=== PATIENT | male | born 1950 | race Hispanic/Latino ===

== ENCOUNTER 2023-10-05 09:54 | Day surgery (SDC) | payer OTHER ==
[2023-10-05 09:06] LABS: Absolute Lymphocytes (CBC) 1.4 K/uL (0.7-4.9); Hematocrit 46.9 % (39.6-49.0); Lymphocytes % 19.5 % (15.3-44.8); MCV 96.1 fL (80-100); MPV 7.8 fL (7.6-11.3); Platelets 226 thou/uL (152-406); RBC Red Blood Cell Count 4.88 M/uL (4.33-5.43)
[2023-10-05] MEDS ORDERED: Ringers Lactate 1,000 ML IV ONE (10:09)
--- NOTE | 2023-10-05 10:12 | RAD REPORT ---
EXAM DESCRIPTION: Ashish Garay And Jose (2 Views)10/05/2023 9:33 am CLINICAL HISTORY: pre op for surgery, hypertension. COMPARISON: CHEST SINGLE VIEW dated 10/16/2014 TECHNIQUE: Portable AP view of the chest. FINDINGS: The lungs are clear. Mild elevation of the left hemidiaphragm. No pneumothorax or effusio n. The cardiomediastinal contours are unremarkable. IMPRESSION: No acute cardiopulmonary process.
[2023-10-05] MEDS ORDERED: propofoL 200 MG/20 ML VIAL IV ONE (11:28)
[2023-10-05] MEDS ORDERED: dexAMETHasone 10 MG/ML VIAL ONE (11:28)
[2023-10-05] MEDS ORDERED: ROCURONIUM 50 MG/5 ML VIAL IV ONE (11:28)
[2023-10-05] MEDS ORDERED: LIDOCAINE 2% MPF 5 ML VIAL ONE (11:28)
[2023-10-05] MEDS ORDERED: ONDANSETRON 4 MG/2 ML VIAL ONE (11:28)
[2023-10-05] MEDS ORDERED: FENTANYL CITR 100 MCG/2 ML ONE (11:29)
[2023-10-05] MEDS ORDERED: BUPIVACAINE 0.5% PF 10 ML VIAL ONE (11:48)
[2023-10-05] MEDS ORDERED: CEFAZOLIN SODIUM 1 GM/VIAL ONE ×2 (13:00→13:15)
--- NOTE | 2023-10-05 13:39 | EKG ---
Test Date: 2023-10-05 Test Time: 09:52:05 Granulating Machine Operator: GERALDO MEASUREMENT RESULTS: Intervals: Rate: 68 SD: 168 QRSD: 90 QT: 400 QTc: 425 [place]: P: 70 SD: 168 QRS: 67 T: 68 INTERPRETIVE STATEMENTS: Normal sinus rhythm Normal ECG Compared to ECG 03/21/2016 07:37:44 Sinus bradycardia no longer present Electronically Signed On 10-05-23 13:38:42 LACQUERER by Tay Acosta
--- NOTE | 2023-10-05 14:03 | P.BOP ---
Preoperative diagnosis: panniculitis, complex abscess left abdominal wall Postoperative diagnosis: same Primary procedure: Excisional debridement and drainage abd wall abscessnecrotic [id number] Estimated blood loss: <10cc Specimen: pus, necrotic tissue Findings: abscess necrotic wound down to fascia Anesthesia: General Complications: None Drain(s): Other (wet to dry NS) Transferred to: Recovery Room Condition: Good
[2023-10-05 14:18] VITALS: O2SAT 99
[2023-10-05] MEDS ORDERED: MORPHINE 4 MG/ML SYR ONE (14:27)
[2023-10-05] MEDS: HYDROCODONE/APAP 7.5/325 MG TAB ONE (15:11)
[2023-10-05 15:27] VITALS: BP 159/81; TEMP 97
--- NOTE | 2023-10-05 16:46 | OP ---
Date of Procedure: 10/05/2023 Surgeon: Guru Lee MD Preoperative Diagnosis: Panniculitis, complex abscess, left abdominal wall. Postoperative Diagnosis: Panniculitis, complex abscess, left abdominal wall. Procedure: Excisional debridement and drainage of abdominal wall abscess with the debridement of the necrotic wound which is about 9 x 6 x 2 cm. Specimen: Pus and necrotic tissue. Finding: Abscess with necrotic wound down to fascia, does not penetrate the fascia. Anesthesia: General plus local. Complications: None. Packing: Wet-to-dry, normal saline. Indication: This is a case of a 73-year-old patient who came with large infection and complex absces s in the left lower quadrant abdominal wall that happened for the last 3 days, increasing in size and discomfort, came to my office yesterday, fluctuance, crepitus, tenderness. Patient was booked for w ound debridement and abscess drainage. Etiology of that is unknown. The benefits, alternatives, and risks of excisional debridement and drainage of an abscess fully explained, which include, but not l imited to, infection, bleeding, damage to adjacent structures, anesthesia complication, nonhealing wo und, IL, and even . He also understands this may not relieve any symptoms. He might need more than one surgical intervention. He also understands he will require long-term wound care. He signed a consent. The area of concern was marked by me and the patient in the holding room. Description Of Procedure: Patient was brought to the operating room, placed in supine position. Ane sthesia was done without complication. Abdominal wall was prepped and draped in the usual sterile fa shion. A time-out was called. Local anesthesia was applied followed by sharp debridement of the nec rotic wound. This left big defects of 9 x 6 x 2 cm at least at the area of the necrotic tissue. All of that tissue was removed all the way down to fascia. The fascia seemed to be intact. Area was ir rigated. Hemostasis was obtained and then the area was packed with wet-to-dry dressing. Patient donaldo erated the procedure well. Patient sent to recovery room in stable condition. BUSHRA/PREMA Voice ID: [id number] Report ID: [id number]
--- NOTE | 2023-10-05 16:49 | DS ---
Date of Discharge: 10/05/2023 Diagnosis: Panniculitis, complex abscess, left abdominal wall. Procedure: Excisional debridement and drainage of abdominal wall necrotic abscess and wound. Disposition: Home. Condition: Stable. Activity: As tolerated. No heavy lifting. Plan: Wet-to-dry, normal saline daily. Follow up in my office, this Sunday. BUSHRA/PREMA Voice ID: [id number] Report ID: [id number]
== END 2023-10-05 16:00 | disposition home or self-care (01) ==
LOC: OR 09:54
PROVIDERS: ATTEND Surgery
PROC: 0WBF0ZZ Excision of Abdominal Wall, Open Approach (ICD-10-PCS; principal; 2023-10-05 12:30)
DX: L72.0 Epidermal cyst (principal); L02.211 Cutaneous abscess of abdominal wall; S31.109A Unspecified open wound of abdominal wall, unspecified quadrant without penetration into peritoneal cavity, initial encounter; I96 Gangrene, not elsewhere classified; M79.3 Panniculitis, unspecified
CPT/HCPCS: 11042; 11045 ×2; 93005; 87070; 85025; 80048; 36415; 87205; 88304; 87075; 71046; J2704; J2001; J3010; J1100; J2405; J7120; J0690 ×2